=== PATIENT | female | born 1960 | race Caucasian/White ===

== ENCOUNTER 2023-06-26 15:10 | Emergency (ER) | payer MEDICARE, OTHER ==
[~2023-06-26 15:10] MED LIST: HYDROmorphone 1 MG/ML CARPUJECT IVP STA
--- NOTE | 2023-06-26 15:10 | ED Physician Documentation ---
History of Present Illness - Stated complaint Stated Complaint: LT ANKLE FX - History obtained from History obtained from: Patient - Additonal information Additional information: 63-year-old woman with history of type 2 diabetes and hypertension had a trip and fall over her dog in the yard just prior to arrival and injured her left ankle. Pain was severe now moderately severe after receiving 50 mcg of fentanyl on the way here from EMS. No other injuries. PD PAST MEDICAL HISTORY - Present Medications Home Medications: Ambulatory Orders Medication Instructions Recorded Confirmed oxyCODONE [Roxicodone] 5 mg PO Q4-6H PRN #20 tablet 06/26/23 - Allergies Allergies/Adverse Reactions: Allergies Allergy/AdvReac Type Severity Reaction Status Date / Time lisinopril Allergy Edema Verified 06/26/23 15:16 PD ED PE NORMAL - Vitals Vital signs reviewed: Yes - General General: Alert and oriented X 3, No acute distress - Neck Neck: Supple, no meningeal sign, No bony TTP - Cardiac Cardiac: RRR, No murmur - Respiratory Respiratory: No respiratory distress, Clear bilaterally - Abdomen Abdomen: Non tender - Back Back: No CVA TTP, No spinal TTP - Derm Derm: Normal color, Warm and dry - Extremities Extremities: Other (Clear deformity of the left ankle consistent with at least a bimalleolar fracture. No proximal fibular tenderness. Normal pedal pulses although her toes are somewhat dusky but with about 3-second cap refill on arrival which improved after removal of the inflatable splint. Normal sensation throug) - Neuro Neuro: Alert and oriented X 3, Normal speech Results - Vitals Vitals: Vital Signs - 24 hr 06/26/23 06/26/23 06/26/23 15:12 15:25 15:50 Temperature 37.3 C 37.3 C Heart Rate 78 79 79 Respiratory 18 14 12 Rate Blood Pressure 167/88 H 178/97 H 171/90 H O2 Saturation 98 98 98 If not protocol 2 : Oxygen Flow, liters/minute 06/26/23 06/26/23 06/26/23 15:58 16:03 16:20 Temperature Heart Rate 102 H 79 75 Respiratory 22 19 14 Rate Blood Pressure 163/86 H 166/111 H 137/74 H O2 Saturation 95 100 98 If not protocol 2 2 : Oxygen Flow, liters/minute 06/26/23 06/26/23 06/26/23 16:35 16:45 16:51 Temperature Heart Rate 75 78 78 Respiratory 18 22 20 Rate Blood Pressure 147/74 H 141/83 H O2 Saturation 98 99 If not protocol : Oxygen Flow, liters/minute Oxygen O2 Source Room air - Rads (name of study) Three-view x-ray left ankle demonstrates a significantly comminuted and displaced bimalleolar fracture Relevant Findings:: Final report received, EMP independent interpretation of test Procedures - Splint (location) - Minor Left Ankle Splint applied by: Physician Type of splint: Fiberglass, Long leg, Posterior, Stirrup Other: Patient tolerated well, No complications, Neurovascular intact - Reduction Body part reduced: Left, Ankle Fracture or dislocation: Fracture dislocation Reduction aftercare: NV intact, Alignment improved, Splint applied - Procedural sedation Sedation prep: Informed consent, Time out completed, PE performed, ASA 2 - mild disease Sedation Medications: propofol (80mg, then 60mg, then 40mg IVP) Mallampati classification: I Patient status during sedation: Responds to tactile Sedation recovery: Recovered uneventfully Time in sedation (Minutes): 15 PD Medical Decision Making - ED course ED course: 63-year-old woman with isolated left ankle injury with bimalleolar fracture. She was sedated and reduced and splinted here, but she was alone tonight, her is currently in [place] but planning to return tomorrow and she requested to stay in the hospital until he returns or at least until the morning when she is more comfortable going home alone. Note to subsequent provider: She has her usual medications with her, with the exception of trazodone which I wrote for an evening dose. I already sent her prescription for oxycodone to [facility]. I did not yet print the discharge paperwork. Departure - Departure Clinical Impression: Bimalleolar fracture of left ankle Condition: Good Record reviewed to determine appropriate education?: Yes Instructions: ED Fx Lower Ext Follow-Up: [facility] [Provider Group] Prescriptions: oxyCODONE [Roxicodone] 5 mg PO Q4-6H PRN #20 tablet PRN Reason: Pain Comments: I sent your prescription electronically to the [facility] in [place]. Elevate as much as possible. You can also take Tylenol, 2 extra strength tablets every 6 hours for pain. You will need to keep the splint on and dry, do not get it wet or remove it. You will need to follow-up with one of our orthopedic surgeons, call first thing Thursday for an appointment. Given the fracture pattern I am 99.9% sure they will recommend subsequent surgery on the ankle for fixation. I am prescribing a short course of narcotic pain medication for you. These are potentially dangerous and addictive medications that should be used carefully. These medications may constipate you. Take an fwfg-xzu-vheqlvy stool softener (docusate) twice daily with plenty of water while taking these medications. If you go 24 hours without a bowel movement, take zblb-ocy-tuwubfo miralax, per package instructions. Do not drink or drive while taking these medications. If you received narcotic or sedating medications while in the emergency department, do not drive for 24 hours. Store this medication in a safe, secure place and out of reach of children. It is a violation of federal law to give or sell this medication to another person or to use in a manner other than prescribed. The ED will not refill narcotic prescriptions, including prescriptions lost or stolen. To dispose of unwanted medications: 1. [facility] provides a [facility] box for medication in pill form only (no liquids) 8:00 am to 4:30 p.m. Thursday-Thursday in the lobby of the [facility], [address] [place] [address]. Empty pills into ziplock bag before disposal. Call [phone] for information. 2.[employer] is a free service available to all [facility] residents. Go to [email or web address] Note that many narcotic pain relievers also contain Tylenol/acetaminophen. Please ensure that your total dose of acetaminophen from all sources does not exceed 3 g (3000 mg) per day.
[2023-06-26] MEDS ORDERED: PROPOFOL 200 MG/20 ML VIAL IVP STA (15:25)
[2023-06-26] MEDS ORDERED: KETOROLAC 15 MG/ML VIAL IVP STA (15:34)
--- NOTE | 2023-06-26 15:44 | XRAY Report ---
PROCEDURE: Ankle 3 View LT INDICATIONS: ankle inj TECHNIQUE: 3 views of the ankle were acquired. COMPARISON: None. FINDINGS: Bones: -Mildly comminuted fracture of the lateral aspect of the distal tibial epiphysis with moderate displa cement of the dominant fracture fragment located medial to the talar dome -Impacted, markedly comminuted fracture of the distal fibula with one shaft width lateral displacemen t of the dominant fracture fragment and approximately 2.2 cm of osseous overlap. -Dislocation of the talus with respect to both the tibia and fibula. Soft tissues: No tibiotalar joint effusion. Achilles tendon appears normal. Marked soft tissue swe lling about the ankle. No radiopaque foreign body. IMPRESSION: Complex fracture dislocation of the ankle with comminuted fractures of the distal tibia and fibula. R ecommend completion radiographic imaging of the tibia-fibula and foot. Reviewed by: Dipti Foreman MD on 06/26/2023 3:43 PM PDT Approved by: Dipti Foreman MD on 06/26/2023 3:43 PM PDT Station ID: [id number]
--- NOTE | 2023-06-26 16:51 | XRAY Report ---
PROCEDURE: Foot 2 View LT INDICATIONS: radiologist recommended TECHNIQUE: 2 views of the foot were acquired. COMPARISON: Same day foot x-ray FINDINGS: Bones: Comminuted fracture of the tibia and fibula status post reduction with improved alignment. No acute fractures of the foot. Soft tissues: No suspicious soft tissue calcifications or masses. IMPRESSION: Comminuted fractures of the distal tibia and fibula status post reduction with improved alignment. No acute fractures of the foot. Reviewed by: Fabrice Boswell MD on 06/26/2023 4:50 PM PDT Approved by: Fabrice Boswell MD on 06/26/2023 4:50 PM PDT Station ID: [id number]
--- NOTE | 2023-06-26 16:56 | XRAY Report ---
PROCEDURE: Tib/Fib LT INDICATIONS: post reduction TECHNIQUE: 2 views of the tibia and fibula were acquired. COMPARISON: None. FINDINGS: Bones: Interval reduction of the trimalleolar fracture. Improved alignment, with still mild asymmetr y in the medial clear space. Soft tissues: No suspicious soft tissue calcifications or masses. IMPRESSION: Improved alignment of the trimalleolar fracture. Reviewed by: Alistair Sykes on 06/26/2023 4:55 PM PDT Approved by: Alistair Sykes on 06/26/2023 4:55 PM PDT Station ID: [id number]
[2023-06-26] MEDS ORDERED: HYDROmorphone 1 MG/ML CARPUJECT IVP STA (17:01)
[2023-06-26] MEDS: ACETAMINOPHEN 500 MG TABLET PO SCH (18:23)
[2023-06-26] MEDS: oxyCODONE 5 MG TABLET PO PRN (18:55)
[2023-06-26] MEDS: ALPRAZolam 0.25 MG TABLET PO PRN (18:55)
[2023-06-26] MEDS ORDERED: oxyCODONE 5 MG TABLET PO STA (20:35)
[2023-06-26] MEDS ORDERED: traZODone 50 MG TABLET PO SCH (21:00)
[2023-06-27 01:13] VITALS: O2SAT 98
[2023-06-27] MEDS: oxyCODONE 5 MG TABLET PO PRN ×2 (01:15→05:15)
[2023-06-27] MEDS: ALPRAZolam 0.25 MG TABLET PO PRN (05:15)
[2023-06-27 05:20] VITALS: BP 125/77
--- NOTE | 2023-06-27 05:42 | ED Physician Documentation ---
ED Addendum - Addendum Addendum: 06/27/23 05:41 Patient's family member is able to take her home now. Antibiotics sent to pharmacy and return precautions given. Impression 1 bimalleolar fracture 2 ankle pain Condition stable Disposition Home
[2023-06-27] MEDS: ACETAMINOPHEN 500 MG TABLET PO SCH ×2 (05:46)
== END 2023-06-27 06:47 | disposition home or self-care (01) ==
LOC: ED 15:10
DX: S82.842A Displaced bimalleolar fracture of left lower leg, initial encounter for closed fracture (principal); W01.0XXA Fall on same level from slipping, tripping and stumbling without subsequent striking against object, initial encounter; Y93.K1 Activity, walking an animal; E11.9 Type 2 diabetes mellitus without complications; I10 Essential (primary) hypertension
CPT/HCPCS: 27810; 73590; 73610; 73620; 96374; 96375; 96376; 99152; 99284; 99285; A9270; J1170; 94770